=== PATIENT | female | born 1940 | race Caucasian/White ===

== ENCOUNTER 2017-02-05 20:42 | Inpatient (IN) | payer OTHER ==
[~2017-02-05] VITALS: Ht 165.1 cm; Wt 113.4 kg
--- NOTE | 2017-02-05 20:50 | NUR ---
PT BIBA FROM HOME WITH THE CAREGIVER BEDSIDE (PT'S DAUGHTER) FOR COMPLAINT OF WORSENING OF DIABETIC BL FOOT ULCERS. DAUGHTER STS PT HAS HAD CHRONIC ULCERS TO FEET THAT "DEVELOPED INTO ONE LARGE ONE." PT HAS HX OF DEMENTIA; ARRIVED TO ED AND TRANSFERRED TO ED [facility] WITH ASSISTANCE. PT HAS BEEN BEDRIDDEN FOR PAST 2 MONTHS SINCE SURGERY ON HEEL FOR AN UNHEALING ULCER. PT IS AWAKE AND ALERT; ORIENTED X 4 AT THIS TIME; ACTING HERSELF PER DAUGHTER. NORMAL RESP EFFORTS NOTED.
--- NOTE | 2017-02-05 21:00 | NUR ---
DR MEEK AT BEDSIDE
[2017-02-05 22:09] LABS: BASOPHIL % 0.6 % (0-2); PLATELET COUNT 279 x10^3mcL (130-400); RED CELL DISTRIBUTION WIDTH 14.2 % (11.5-14.5)
--- NOTE | 2017-02-05 22:15 | NUR ---
PT'S HEELS ELEVATED WITH SEVERAL PILLOWS TO PREVENT FURTHER PRESSURE ON SKIN PT REMAINS ON FULL MONITORS WITH NO SIGNS OF DISTRESS
[2017-02-05 22:48] LABS: CALCIUM 8.9 mg/dL (8.5-10.1); CARBON DIOXIDE 26.7 mmol/L (21-32); CHLORIDE SERUM 99 mmol/L (98-107); CREATININE SERUM 1.1 mg/dL (0.6-1.0); GLUCOSE SERUM 418 mg/dL (74-106); POTASSIUM SERUM 3.5 mmol/L (3.5-5.1); SODIUM SERUM 134 mmol/L (136-145)
[2017-02-05 22:59] LABS: ALKALINE PHOSPHATASE 54 U/L (46-116); ALT/SGPT 17 U/L (14-59); AST/SGOT 14 U/L (15-37); BILIRUBIN TOTAL 0.37 mg/dL (0.20-1.00); TOTAL PROTEIN, SERUM 7.4 g/dL (6.4-8.2)
--- NOTE | 2017-02-05 23:00 | NUR ---
PT REMAINS WITH NO CHANGES IN MENTAL STATUS; ON FULL MONITORS WITH NSR SHOWING.
[2017-02-05 23:01] LABS: ALBUMIN 2.6 g/dL (3.4-5.0)
[2017-02-05 23:04] LABS: CK-MB 0.7 ng/mL (0-3.6)
[2017-02-06] VITALS (7 sets, daily range): BP systolic 113–126; BP diastolic 45–90; Ht 165.1 cm; Wt 113.4 kg
[2017-02-06] MEDS ORDERED: LEVOTHYROXIN0.025 M2 (00:29)
[2017-02-06] MEDS ORDERED: INSR (00:30)
[2017-02-06] MEDS ORDERED: LANTUS SOLOS100 U/M1 SQ (00:30)
[2017-02-06] MEDS ORDERED: ASPIR 8181 MG PO (00:31)
[2017-02-06] MEDS ORDERED: SIMVASTATIN10 M1 PO (00:32)
[2017-02-06] MEDS ORDERED: ARICEPT5 MG PO (00:32)
[2017-02-06] MEDS ORDERED: LISINOPRIL2.5 MG (00:32)
--- NOTE | 2017-02-06 01:00 | NUR ---
RECEIVED PT FROM ED VIA [facility]. CAME IN DUE TO LEFT FOOT WOUND, PT NOT SURE WHEN IT STARTED. AAOX2 (PERSON AND PLACE), ABLE TO FOLLOW COMMANDS. NO SOB NOTED. DENIES CHEST PAIN/PRESSURE, SB-SR ON THE MONITOR. DENIES ABDOMINAL DISCOMFRORT. W/ LEFT FOOT OPEN WOUND, RESPITE PROVIDER. W/ DRY YELLOW CLOSED WOUND ON THE RIGHT PLANTAR ASPECT OF THE FOOT, RESPITE PROVIDER. W/ EXCORIATION ON THE PERINEAL AREA, ABODMINAL FOLDS AND BUTTOCKS. SIDE RAILS UPX2. CALL LIGHT ON REACH. PRIMARY NURSE CODY AT BEDSIDE FOR CONTINUITY OF CARE
--- NOTE | 2017-02-06 01:01 | NUR ---
PHOTOS TAKEN OF PT'S BUTTOCKS, ABDOMINAL FOLDS AND GROIN AREA FOR REDNESS AND EXCORIATIONS.
[2017-02-06 01:16] LABS: CHOLESTEROL/HDL RATIO 3.7
[2017-02-06 01:26] LABS: T3 TOTAL 0.3 ng/mL
--- NOTE | 2017-02-06 01:30 | NUR ---
IS MADE AWARE OF PT'S 2ND LACTIC ACID AT 2.3
[2017-02-06 01:47] LABS: FREE T4 0.51 ng/dL (0.76-1.46)
[2017-02-06 01:58] LABS: T4(THYROXINE) 3.5 ug/dL (4.7-13.3)
[2017-02-06 06:26] LABS: BASOPHIL % 0.7 % (0-2); PLATELET COUNT 319 x10^3mcL (130-400)
--- NOTE | 2017-02-06 06:28 | NUR ---
PT IS RESTING IN BED, AWAKE/ALERT AND VERBALLY RESPONSIVE. PT DID ASK FOR FOOD BUT EXPLAINED THAT THE DOCTOR HAS ORDERED NPO AT THIS TIME. RESP IS EVEN AND NOT LABORED ON ROOM AIR. NO DIFFICULTY BREATHING NOTED. IVF IS INFUSING WELL TO THE LFA WITH NS AT 120 ML/HR. BLOOD SUGAR CHECK WAS 235 AND REGULAR INSULIN 6 UNITS GIVEN PER RISS. BLE FEET ARE ELEVATED ORDERED. PT IS ABLE TO MAKE NEEDS KNOWN AND CALL LIGHT IS WITHIN REACH. NO DISTRESS NOTED.
[2017-02-06 06:42] LABS: CALCIUM 8.6 mg/dL (8.5-10.1); CARBON DIOXIDE 28.3 mmol/L (21-32); CHLORIDE SERUM 102 mmol/L (98-107); CREATININE SERUM 1.1 mg/dL (0.6-1.0); GLUCOSE SERUM 233 mg/dL (74-106); MAGNESIUM 1.4 mg/dL (1.8-2.4); PHOSPHOROUS 2.6 mg/dL (2.5-4.9); POTASSIUM SERUM 3.3 mmol/L (3.5-5.1); SODIUM SERUM 138 mmol/L (136-145)
[2017-02-06 06:48] LABS: RED CELL DISTRIBUTION WIDTH 14.9 % (11.5-14.5)
--- NOTE | 2017-02-06 07:45 | NUR ---
RECEIVED PT IN BED.ASSESSED AND DOCUMENTED.STATING PAIN IN THE WHEN ONLY WHEN SHE MOVE. OFFERED PAIN MEDICINE BUT STATED NO NEED OF PAIN MEDICINE NOW. SAFTEY PRECAUTIONS ON.WILL MONITOR.
--- NOTE | 2017-02-06 09:00 | NUR ---
INFORMED K=3.3.NO NEW ORDER RECEIVED.
--- NOTE | 2017-02-06 10:00 | NUR ---
PT SAID SHE WILL CALL WHEN SHE HAS TO VOID AND SHE WILL ASK FOR BEDPAN BUT SHE DOESNOT WANT ANY CATHETER. REMINDING PT NEED URINE SPECIMEN FOR UA.
--- NOTE | 2017-02-06 11:00 | NUR ---
INFORMED AGAIN K=3.3 AND STILL NO ORDER RECEIVED ,HE SAID HE WILL PUT ORDERS.
--- NOTE | 2017-02-06 13:47 | NUR ---
Limited Echo Done
--- NOTE | 2017-02-06 14:20 | NUR ---
INFORMED ABOUT US VENOUS SHOWS DVT IN LEFT FEMORAL VEIN. HE SAID HE WILL CHECK AND PUT ORDERS.
--- NOTE | 2017-02-06 17:00 | NUR ---
(PODIATRY) CAME AND CHECKED PT FOOT ULCER AND SAID LEAVE THE WOUND OPEN TO AIR AND CLEAN WITH SALINE.NO NEED DRESSING.
--- NOTE | 2017-02-06 19:00 | NUR ---
LATE ENTRY:PAGE GATED FOR TO INFORM BLOOD CULTURE RESULT GRAM POSITIVE. AWARE ABOUT WANT TO DO DUPLEX ARTIRIAL FOR BLE AND HE SAID US VENOUS BLE IS SAME AND ORDERED AND DONE.
--- NOTE | 2017-02-06 19:00 | NUR ---
PT RESTING IN BECD COMFORTABLY. DENIES ANY PAIN. REMINDED AGAIN FOR DVT POSITIVE FOR LT FEMORAL ELI BY PAGE GATE. GAVE REPORT TO NEXT SHIFT NURSE.
--- NOTE | 2017-02-06 19:30 | NUR ---
RECEIVED REPORT FROM DAY SHIFT RN. PT RESTING IN SEMI PRINGLE'S POSITION. AIR MATTRESS IN PLACE. NO C/O PAIN AT THIS TIME. NO DISTRESS NOTED. IV ON LFA, NS INFUSING. BED IN LOWEST POSITION. SIDE RAILS UP X2. DEMONSTRATED HOW TO CALL IF ASSISTANCE IS NEEDED. CALL LIGHT WITHIN REACH.
--- NOTE | 2017-02-06 20:36 | NUR ---
HEPARIN PROTOCOL 1300 UNITS/HR. NEXT PTT ORDER AT 0245.
--- NOTE | 2017-02-06 20:36 | NUR ---
HEPARIN PROTOCOL 13,000 UNITS/HR. NEXT PTT ORDER AT 0245.
[2017-02-07 03:30] LABS: CALCIUM 8.4 mg/dL (8.5-10.1); CARBON DIOXIDE 26.9 mmol/L (21-32); CHLORIDE SERUM 103 mmol/L (98-107); CREATININE SERUM 1.1 mg/dL (0.6-1.0); GLUCOSE SERUM 181 mg/dL (74-106); MAGNESIUM 2.9 mg/dL (1.8-2.4); POTASSIUM SERUM 3.5 mmol/L (3.5-5.1); SODIUM SERUM 134 mmol/L (136-145)
[2017-02-07 03:56] LABS: BASOPHIL % 0.4 % (0-2); PLATELET COUNT 322 x10^3mcL (130-400)
[2017-02-07 04:03] LABS: RED CELL DISTRIBUTION WIDTH 14.7 % (11.5-14.5)
--- NOTE | 2017-02-07 04:15 | NUR ---
PTT 73.3. HEPARIN 1100 UNITS/HR. NEXT PTT ORDER AT 0815.
[2017-02-07 06:10] VITALS: BP 114/75
--- NOTE | 2017-02-07 06:50 | NUR ---
PT SLEPT AT LONG INTERVALS. NO C/O PAIN. NO DISTRESS NOTED. SAFETY PRECAUTIONS MAINTAINED. ALL NEEDS ATTENDED TO. CALL LIGHT WITHIN REACH. WILL ENDORSE CONTINUITY OF CARE TO ONCOMING RN.
--- NOTE | 2017-02-07 07:45 | NUR ---
RECEIVED PT IN BED.ASSESSED AND DOCUMENTED. DENIES PAIN THIS TIME. SAFTEY PRECAUTIONS ON. WILL MONITOR.
--- NOTE | 2017-02-07 09:00 | NUR ---
INFORMED ABOUT PT MRSA NARES POSITIVE. HE SAID HE WILL PUT ORDERS.
--- NOTE | 2017-02-07 09:43 | NUR ---
0845: WOUND CARE NOTES: LEFT MESSAGE TO PATIENT'S DAUGHTER CELLPHONE AT [phone]. AWAITING FOR CALL BACK.
[2017-02-07 10:50] VITALS: BP 111/42
--- NOTE | 2017-02-07 11:23 | NUR ---
0900: WOUND CARE EVALUATION NOTES: REASON FOR EVALUATION: BILATERAL FEET ULCERS COMPLETE SKIN ASSESSMENT DONE ON THIS 76 Y/O FEMALE PATIENT FROM [place] [facility] WITH INITIAL DIAGNOSIS OF LEFT FOOT INFECTED DIABETIC ULCER. PAST MEDICAL HISTORY INCLUDE DM, DEMENTIA AND MULTIPLE EXCISIONAL DEBRIDEMENT OF DM ULCERS. ALL ABOVE INFORMATION WAS OBTAINED FROM THE ADMISSION H&P. LABS ARE WBC 8.6, H/H 12.8/39, GLUCOSE 181, ALBUMIN 2.6, PT/INR 10.3/1.0 AND PTT 25.6. CURRENT MEDS INCLUDE LEVOFLOXACIN, CLINDAMYCIN, HEPARIN, TRIAMCINOLONE, INSULIN, ASPIRIN AND NORCO. PATIENT IS AWAKE, ORIENTED X2 BUT ABLE TO FOLLOW SIMPLE COMMANDS. SKIN WARM TO TOUCH WNL, TOENAILS ARE YELLOW AND THICKENED, +2 EDEMA, NO HAIR GROWTH AND UNABLE TO PALPATE BILATERAL PEDAL PULSES. URINE AND BOWEL INCONTINENT. ABLE TO TURN SELF WITH ASSISTANCE. INITIAL PLAN OF CARE AND PRESSURE PREVENTIVE MEASURES DISCUSSED, UNABLE TO VERBALIZE FULL UNDERSTADNING. WILL REINFORCE TEACHING. NO FAMILY MEMBER PRESENT AT BEDSIDE AT THIS TIME, WILL FOLLOW UP. INTEGUMENTARY: LEFT PLANTAR FOOT - MULTIPLE MIXED VASCULAR ULCERS - 100% BLACK LEFT MEDIAL DISTAL HALLUX - 100% DUARTE ESCHAR RIGHT MEDIAL PLANTAR FOOT - 100% YELLOW ABDOMINAL FOLD - INTERTRIGINOUS DERMATITIS BILATERAL BREAST FOLDS - INTERTRIGINOUS DERMATITIS SACRALCOCCYX, PERIAREA, BILATERAL GROIN AND BILATERAL MEDIAL THIGHS - INCONTINENCE ASSOCIATED DERMATITIS RECOMMENDATIONS: -PAINT BILATERAL PLANTAR FOOT AND LEFT MEDIAL DISTAL HALLUX WITH BETADINE BID AND LEAVE OPEN TO AIR -CLEANSE ABDOMINAL FOLDS AND BREAST FOLDS WITH MILD SOAP AND WATER, PAT DRY, APPLY INTERDRY CLOTH Q 7 DAYS AND PRN WITH SOILING/DISPLACEMENT -CLEANSE SACRALCOCCYX, PERIAREA, BILATERAL GROIN AND BILATERAL MEDIAL THIGHS WITH MILD SOAP AND WATER, PAT DRY, APPLY Z GUARD BID AND PRN WITH SOILING. LEAVE OPEN TO AIR -TURN AND REPOSITION PATIENT Q2H -ASSESS AND MONITOR SKIN CONDITION DURING POSITION CHANGE, PLEASE PAY PARTICULAR ATTENTION TO SACRALCOCCYX, ELBOWS AND HEELS -OFFLOAD BILATERAL HEELS BY PLACING PILLOWS UNDER CALVES AT ALL TIMES, UNLESS OTHERWISE CONTRAINDICATED -PRESSURE REDISTRIBUTION SURFACE THERAPY -KEEP SKIN CLEAN AND DRY AT ALL TIMES. RECOMMENDATIONS DISCUSSED WITH PRIMARY RN AND RESIDENT PHYSICIAN, DR. PITTMAN. WILL FOLLOW UP PATIENT Q 7 DAYS AND PRN. PLEASE CONTACT [facility] FOR ANY CONCERNS, QUESTIONS AND CHANGES IN SKIN CONDITION.
--- NOTE | 2017-02-07 12:00 | NUR ---
INFORMED ABOUT COULD NOT COLLECT UA BECAUSE SHE IS INCONTINENT AND DISCUSSED PT WITH MAY HAVE TO STRAIGHT CATH BUT PT SAID SHE DOESNOT WANT ANY URINAY CATHETER INSERTION. TRY TO CATCH WITH BEDPAN BUT SHE IS NOT URINATING IN THE BEDPAN THIS TIME. WILL TRY AGAIN.
[2017-02-07 13:00] VITALS: BP 126/60
--- NOTE | 2017-02-07 14:15 | NUR ---
OR STAFF CAME AND TOOK PT TO OR VIA BED FOR BILATERAL FOOT ULCER DEBRIDEMENT. CALLED DAUGHTER AND GOT CONSENT, VERIFIED WITH 2 RN. PT IS STABLE. VITAL SIGNS STABLE.INFORMED PT HR 55,HE SAID FINE AND GIVE DILAUDID IV 1MG ORDERED AND GAVE LIDOCIANE TO FOR PROCEDURE.CHECKLIST FINISHED.
--- NOTE | 2017-02-07 16:00 | NUR ---
RECEIVED PT FROM OR AFTER DEBRIDEMENT OF BILATERAL FOOT ULCERS. VITAL SIGNS STABLE. PT IS SLEEPING. DENIES ANY PAIN. DRESSING TO BILATERAL FOOT WITH KERLIX GAUZE IS CDI. SAID RESTARTING HEPARIN AT 1999. WILL CONTINUE MONITOR.
--- NOTE | 2017-02-07 17:12 | NUR ---
P.T. NOTES/INITIAL EVAL [id number] Pt WAS ADMITTED DUE TO (L)FOOT INFECTED DIAB ULCER; Pt LIVES IN 1-SAUL HOUSE W/ DAUGHTER; Pt UNABLE TO RECALL WHEN SHE RECENTLY AMBULATED OR IF SHE HAS DMEs, UNABLE TO RECALL PREVIOUS OCCUPATION; PER CASE MGMT: Pt HAS HOSP BED, FWW, SPC, MECH LIFT, OHT, BSC, W/C (UNABLE TO SIT ON). S:Pt WAS SEEN AWAKE & ALERT IN BED, SPEAKS NORWEGI[place], ORIENTED TO SELF & PLACE, ABLE TO FOLLOW COMMANDS, AGREEABLE W/ P.T. W/ MOTIVATION; DEMO LE PAIN (P.S.8/10)(LUNA MADISON PAIN SCALE); NO C/O DIZZINESS AT THIS TIME; WOUND RN & ECLECTIC DOCTOR IN ROOM; MINIMAL BLEEDING (L)FOOT WOUND, RN ADDRESSED; Pt TENDS TO BE ANXIOUS, APPREHENSIVE; CONTACT ISOL PREC OBSERVED; WAS SEEN EARLIER, BUT Pt REQUESTED P.T. STAFF TO COME BACK DUE TO Pt's BROTHER VISITING (ALSO A PATIENT). O: BED MOBILITY: TOTAL ASSIST+2 PERSONS IN SUPINE TO SIT TRANSFERS: TOTAL ASSIST+2 PERSONS IN SIT TO STAND W/ FWW, (L)LE NWB, REQ ASSIST TO MAINTAIN WB PREC, POORLY KIMBERLY GAIT: UNABLE Pt ASSISTED TO BED SAFELY; HOB, LE ELEVATED; CALL BERG, PHONE, TABLE IN REACH; APPRECIATIVE; LEFT TO CARE OF NURSE STAFF; ON ROOM AIR; AIR MATTRESS ON, BED ALARM ON. A:Pt DEMO FAIR RESPONSE TO P.T. SESSION; FALL RISK; Pt EDUC ON SAFE TASK SEQUENCING, HEP, BREATHING TECH, USE OF CALL LIGHT FOR NURSE ASSIST, NEEDS REINFORCEMENT, POOR FOLLOW THRU; OBESE, MRSA. P:CONT PT ONCE DAILY 5X/WK X 1 WK; POC & DX DISCUSSED W/ UMBRELLA FRAME MAKER. EVAL23,2PA GCODES:[id number] [facility] REACH SCORE:15 inches [phone] Pt WAS GIVEN THERA EXER UE/LE INCORPORATED W/ BED ACT; CONT PT EX8
--- NOTE | 2017-02-07 17:25 | NUR ---
PT VOMITED X1 AND GAVE ZOFRAN IV ORDERED AND WILL REASSESS.
[2017-02-07 17:57] VITALS: BP 119/59
--- NOTE | 2017-02-07 19:00 | NUR ---
PT RESTING IN BED COMFORTABLY. DENIES ANY PAIN. NO NAUSEA NOTED. GAVE REPORT TO NEXT SHIFT NURSE.
--- NOTE | 2017-02-07 19:40 | NUR ---
RECEIVED RERPORT FROM DAY SHIFT RN. PT RESTING IN SEMI PRINGLE'S POSITION. IV ON RFA, SALINE LOCK. IV ON LEFT WRIST, NS INFUSING. NO C/O PAIN AT THIS TIME. NO DISTRESS NOTED. AIR MATTRESS IN PLACE. BLE ELEVATED. DRESSING CDI. BED IN LOWEST POSITION. SIDE RAILS UP X2. DEMONSTRATED HOW TO CALL IF ASSISTANCE IS NEEDED. CALL LIGHT WITHIN REACH.
--- NOTE | 2017-02-07 21:10 | NUR ---
HEPARIN DRIP RESTARTED PER ORDER. 1300 UNITS/HR. NEXT PTT ORDER ON 02/08/17 AT 0310.
[2017-02-07 22:02] VITALS: BP 97/75
[2017-02-08 00:59] LABS: UA SPECIFIC GRAVITY >=1.030 (1.005-1.035); microscopic required? YES; urine erythrocyte 2+ (NEGATIVE)
[2017-02-08 04:20] LABS: BASOPHIL % 0.6 % (0-2); PLATELET COUNT 319 x10^3mcL (130-400)
[2017-02-08 04:21] LABS: RED CELL DISTRIBUTION WIDTH 15.1 % (11.5-14.5)
[2017-02-08 04:32] LABS: CALCIUM 8.8 mg/dL (8.5-10.1); CARBON DIOXIDE 28.5 mmol/L (21-32); CHLORIDE SERUM 106 mmol/L (98-107); CREATININE SERUM 1.1 mg/dL (0.6-1.0); GLUCOSE SERUM 93 mg/dL (74-106); MAGNESIUM 1.8 mg/dL (1.8-2.4); PHOSPHOROUS 4.2 mg/dL (2.5-4.9); POTASSIUM SERUM 4.1 mmol/L (3.5-5.1); SODIUM SERUM 140 mmol/L (136-145)
--- NOTE | 2017-02-08 04:45 | NUR ---
PTT RESULT 102. HOLD HEPARIN FOR 1 HR, DECREASE BY 300 UNITS/HR. NEXT PTT ORDER ON 02/08/17 AT 0845.
[2017-02-08 07:00] VITALS: BP 102/43
--- NOTE | 2017-02-08 07:00 | NUR ---
PT SLEPT AT LONG INTERVALS. C/O NAUSEA X1, MEDICATED WITH ZOFRAN. SAFETY MEASURES MAINTAINED. CALL LIGHT WITHIN REACH. WILL ENDORSE CONTINUITY OF CARE TO ONCOMING RN.
--- NOTE | 2017-02-08 08:00 | NUR ---
ALERT AND ORIENTED. BREATHING FREELY ON 02 2L NC. CONTACT ISOLATION FOR MRSA TO NARES. ON AIR MATTRESS. TURNED AND REPOSITIONED Q 2 HOURS. DENIES ANY PAIN. TELE # 34 HR 50'S. ASYMPTOMATIC. NS INFUSING 120 CC HOUR. FEET WRAPPED WITH KERLEX WRAP. SM AMT SEROSANGUINOUS FLUID SHADDOWING THROUGH. CALL LIGHT WITHIN REACH.
[2017-02-08 09:45] VITALS: BP 115/60
--- NOTE | 2017-02-08 10:26 | NUR ---
REPORTED FROM LAB PTT 60.1. NEW ORDER TO DC HEPARIN DRIP. TO START XARELTO OMAR.
--- NOTE | 2017-02-08 11:20 | NUR ---
HEPARIN DC'D. STARTED ON XARELTO PO.
[2017-02-08 13:26] VITALS: BP 103/62
--- NOTE | 2017-02-08 14:24 | NUR ---
PT NOTES TIME [phone] S: CLEARED BY RN FOR P.T. TX. PATIENT IS AWAKE & ALERT IN A SEMI PRINGLE POSITION IN BED. AGREEABLE TO P.T. TX. C/O LOW BACK & BILAT LE 04/13. RN IS AWARE. O: VITALS AT REST BP 121/48, HR 48 BPM, SPO2 ON 2LPM 100% BED MOBILITY: LOGROLLING MAX ASSIST OF 2. SUPINE<>SIT W/ TOTAL ASSIST OF 2. SCOOTING TO EOB W/ MAX ASSIST OF 2. SCOOTING TO HOB IN SUPINE TOTAL ASSIST OF 2. WHILE SEATED AT EOB, PATIENT REQUIRES MIN ASSIST TO MAINTAIN SITTING BALANCE DUE TO PATIENT EASILY HAVE A LOB. VC/TC GIVEN TO USE SIDERAIL DURING LOGROLLING. PATIENT WILL RETROLEAN IN SITTING & REQUIRES CUES GIVEN TO CORRECT COG FORWARD IN SITTING. PATIENT ABLE TO KIMBERLY. SITTING AT EOB FOR 25 MINS. EDUCATED PATIENT ON THE RISK/COMPLICATIONS OF IMMOBILIZATION W/ G UNDERSTANDING. VITALS IN SITTING BP 127/55, HR 50-57 BPM, SPO2 ON 2LPM 100% TRANSFER: REFUSED THER EX AAROM/AROM KNEE FLEX/EXT, HIP FLEXION, HIP ABD/ADD, SLR, SHOULDER FLEXION, ELBOW FLEX/EXT, SHOULDER HORIZ. ABD/ADD, SCAPULAR RETRA/PROTRAC X 15 REPS W/ REST BREAKS IN BETWEEN. PATIENT IS SAFELY & COMFORTABLY IN A SEMI PRINGLE POSITION IN BED W/ CALL BUTTON & TABLE IN REACH. AIR MATTRESS ON. BED ALARM ON. O2 VIA NC. VITALS AFTER TX BP 134/45, HR 47 BPM. RN NOTIFIED P: DISCUSSED W/ PRIMARY PHYSICAL THERAPIST TA28',TE10',2PA(2), PVE(PERINEAL CARE)
--- NOTE | 2017-02-08 14:27 | NUR ---
PT SLEEPING. APPEARS TO BE COMFORTABLE. CONTACT ISOLATIN FOR MRSA NARES.
--- NOTE | 2017-02-08 16:53 | NUR ---
REMOVED DRESSING TO LEFT FOOT. CLEANSED LARGE PLANTAR WOUNDS WITH NS. SLOUGH NOTED TO WOUND CLOSER TO TOES. SMALL AMT BLEEDING NOTED TO SEVERAL SITES. SOAKED GAUZE WITH HYDROGEL AND COVERED WOUNDS. PLACED ABD PAD ON PLANTAR SURFACE AND WRAPPED WITH KERLEX. REMOVED DRESSING TO RIGHT FOOT. SMALL WOUND APPROX 1 1/2 CM X 1 CM ON PLANTAR SURFACE. NO BLEEDING OR DRAINAAGE NOTED. CLEANSED SITE WITH NS. SOAKED CLEAN GAUZE WITH HYDROGEL COVERED PLANTR WOUND AND REWRAPPED WITH CLEAN KERLEX. CHANGED LINENS AND GOWN, REPOSITIION PT WITH ASSIST FRON 1 TO 1. RESOURCE NURSE.
--- NOTE | 2017-02-08 16:56 | NUR ---
Initial Nutrition Assessment Dx: Left DM Foot ulcer with cellulitis PMHx: DM, Dementia PSHx: Multiple excisional debridements of DM ulcers Labs: BG 93, Cr 1.1H, Alb 2.6, A1C 11.6H Meds: NS, colace, lactinex, synthroid, zofran, levemir, aricept, humulin R, D50 Current Diet Order: CCHO 60gm w/ Boost Glucose Control BID (02/06) PO Intakes: 100% B, 85% L (02/06); 80% B, 100% D (02/07); 100% B, 100% L (02/08) Ht: 165.1cm,65". Wt: 249lbs,113.39 kg. BMI: 41.6 kg/m2 (Obese Class III) IBW: 125lb, 56.8 kg. %IBW: 199%. UBW: pt unsure Age: 76 Y/O F Food Allergies: NKFA Skin: DM foot ulcer. Micah:14 Edema: None noted GI:C/O nausea . Last BM:1 formed (02/08) Pt admitted w/Left DM Foot ulcer with cellulitis. As per doctor's progress note 02/08-Persistent asymptomatic bradycardia likely 2/2 hypothyroidism, vitals otherwise stable. PT eval pending. X-ray Left foot- IMPRESSION: There are findings likely reflecting old fracture versus partial osteotomy of the 1st distal phalanx. No fractures are appreciated. There findings questionable for soft tissue ulceration noted along the lateral aspect of the foot adjacent to the distal aspect of the 5th metatarsal bone without soft tissue gas. Degenerative changes are noted. Podiatry consulted, Dr. Tavera Following, Continue IV ABX, continue wound care, consider vascular consult if moderate to severe occlusion or general surgery for possible amputation if occlusion is mild to moderate. Heparin on Held for Excisional debridement today. Patient s/p Exisional debridement POD#0. Patient refusing streight cath for UA. Pt seen at bedside w/ no family present, pt was on contact isolation, pt reports consuming 100% of lunch today, states "I like to eat", denies GI issues, unsure of wt history, the RD briefly reviewed w/ pt on DM diet and making food preferences known, educational handout given, the pt was mildy receptive, the RD encouraged pt to share info w/ family. Spoke to RN, reports the pt is doing well, has good appetite, denies GI issues. Problem with: N: None. V: None. D: none. C: None. Problem with: Chewing: None. Swallowing: None. Current Appetite: Good- "likes to eat" as per pt Recent Weight Change: unable to assess. % Weight Change: unable to assess Vitamin/Supplement Use: unable to obtain Diet at Home: unable to obtain Physical Activity: unable to obtain Education: N/A d/t pt demented Estimated Nutritional Needs Based on IBW 125 lb, 56.8kg Energy: 1920-4757 kcal/day (30-35 kcal/kg for DM Ulcer) Protein: 57-68 g/day (1-1.2 g/kg for DM Ulcer) Fluid: 6278-0047 ml/day (30-35 ml/kg for DM Ulcer) or per MD Nutrition Diagnosis 1. Increased protein/energy needs related to impaired skin integrity as evidenced by pt w/ DM foot ulcer Intervention 1. CCHO 60mg and Cardiac diet. 2. Theragran daily and Vitamin C 500gm BID for wound healing Monitor/Evaluate Goal: PO intakes to meet >/=75% of estimated needs w/ tolerance Monitor: PO intakes/tolerance, labs, skin integrity, GI function, wt F/U in 3-5 days as MODERATE risk (02/11-02/13)
[2017-02-08 16:57] VITALS: BP 94/41
--- NOTE | 2017-02-08 17:01 | NUR ---
1. CCHO 60mg and Cardiac diet. 2. Theragran daily and Vitamin C 500gm BID for wound healing
--- NOTE | 2017-02-08 18:23 | NUR ---
PT TURNED QUITE FREQUENTLY PER REQUEST. ABLE TO ASSIST WITH TURNING. ALERT AND ORIENTED. FORGETFUL. INCONTINENT OF URINE. OCC ASKS FOR BEDPAN. NS INFUISNG 120 CC HOUR. HEPARIN DC'D. STARTD ON XARELTO. CONTINUES ON LEVAQUIN AND CLEOCIN. CALL LIGHT WITHIN REACH. CONTACT ISOLATION FOR MRSA TO NARES.
--- NOTE | 2017-02-08 19:35 | NUR ---
RECEIVED Pt AAOX2 FORGETFUL. DENIES ANY CHEST PAIN. LUNG SOUNDS ARE DIMINISHED BUT CLEAR BILATERALLY. PULSE OX 96% ON 2L/NC. ACTIVE BOWEL SOUNDS X4 QUADS. DENIES ANY N/V/D. REDNESS NOTED TO BUTTOCKS, UNDER BREASTS, ABD FOLDS, GROIN AREAS, AND UPPER BACK, EDGE STAINER. VOIDS FREELY. IV SITES TO RFA/LT WRIST ARE PATENT. AIR MATTRESS IN PLACE AND REPOSITIONED USING WEDGES. RADIAL AND PEDAL PULSES PRESENT WITH GENERALIZED EDEMA NOTED. DRESSING TO BLE CDI. REFUSES TO ELEVATE EXTREMITIES DUE TO DISCOMFORT. RE-ORIENTED TO CALL LIGHT AND POC. WILL CONTINUE TO MONITOR.
[2017-02-08 20:45] VITALS: BP 124/40
--- NOTE | 2017-02-09 00:10 | NUR ---
Pt CLEANED, REPOSITIONED. SUGGESTED TO DR. GONZALEZ A FIGUEREDO CATH TO PREVENT FURTHER SKIN BREAK DOWN. MADE AWARE PLAN TO D/C Pt TOMORROW. WILL CONTINUE TO REPOSITION Q2HRS.
--- NOTE | 2017-02-09 01:08 | NUR ---
Pt RESTING QUIETLY. WILL CONTINUE TO MONITOR.
--- NOTE | 2017-02-09 05:26 | NUR ---
NO SIGNIFICANT CHANGES NOTED OVER NIGHT. Pt RESTED WELL WITH AMBIEN AND NORCO. REPOSITIONED PER PROTOCOL. IV SITES REMAIN PATENT. SAFETY AND COMFORT MEASURES REMAIN IN PLACE. WILL CONTINUE TO MONITOR.
[2017-02-09 06:09] LABS: BASOPHIL % 0.5 % (0-2); PLATELET COUNT 293 x10^3mcL (130-400)
[2017-02-09 06:20] VITALS: BP 115/47
[2017-02-09 06:39] LABS: RED CELL DISTRIBUTION WIDTH 14.8 % (11.5-14.5)
[2017-02-09 06:42] LABS: CALCIUM 8.3 mg/dL (8.5-10.1); CARBON DIOXIDE 26.3 mmol/L (21-32); CHLORIDE SERUM 107 mmol/L (98-107); CREATININE SERUM 1.1 mg/dL (0.6-1.0); GLUCOSE SERUM 90 mg/dL (74-106); SODIUM SERUM 140 mmol/L (136-145)
--- NOTE | 2017-02-09 06:55 | NUR ---
I HAVE REVIEWED THE DATA COLLECTION BY JINGLE WRITER (NAME):KODAK LOUIS JINGLE WRITER ENTERED ON (DATE/TIME):02/08/17 @ 1999 I CONCUR WITH THE DATA AND ANY EXCEPTIONS OR COMMENTS ARE LISTED BELOW:
--- NOTE | 2017-02-09 08:00 | NUR ---
ALERT AND ORIENTED. FORGETFUL. BREATHING FREELY ON 2L NC. NO RESP DISTRESS NOTED. CONTACT ISOLATION FOR MRSA NARES. TELE # 34 SB HR UPPER 40'S-60'S. NS INFUSING 120 CC HOUR. INCONTINENT OF URINE. REQUIRES ASSIST W/ ADL'S AND TURNING. ON AIR MATTRESS. DRESSINGS TO FEET CDI. DENIES ANY PAIN. CALL LIGHT WITHIN REACH AND NEEDS FREQUENT REMINDERS.
[2017-02-09 10:07] VITALS: BP 139/58
[2017-02-09 12:58] VITALS: BP 132/56
--- NOTE | 2017-02-09 14:04 | NUR ---
RECEIVED REPORT FROM LAB LEFT FOOT CX MRSA (+).
--- NOTE | 2017-02-09 15:40 | NUR ---
DR. MATAMOROS IN TO SEE PT. PERFORMING WOUND CARE TO LEFT AND RIGHT FEET. RECEIVED REPORT FROM LAB RIGHT FOOT WOUND IS ALSO MRSA (+). DR. MATAMOROS INFORMED. PT IS ON ISOLATION PRECAUTIONS. NEW IV ABX ORDERED.
[2017-02-09 18:12] VITALS: BP 121/66
--- NOTE | 2017-02-09 18:39 | NUR ---
PT CONTINUES TO REQUIRE MAX ASSIST WITH MOST ADL'S AND TURNING. DRESSINGS TO LEFT AND RIGHT FEET CDI. STARTED ON FORTAZ AND BACTRIM TODAY. TURNED AND REPOSITIONED Q 2 HOURS AND PRN. KENALOG FOR EXCORIATED BUTTOCKS,RASH TO ABD AND BREAST FOLDS. DENIES NEED FOR PAIN MED. CONTACT ISOLATION FOR MRSA NARES AND BILAT FEET WOUNDS. VSS. TELE # 34 SB. CALL LIGHT WITHIN REACH.
--- NOTE | 2017-02-09 19:23 | NUR ---
RECEIVED PT FROM JA DANIEL.
[2017-02-09 20:43] VITALS: BP 132/59
--- NOTE | 2017-02-09 21:36 | NUR ---
SCHEDULED MEDICATIONS ADMINISTERED. NO SWALLOWING DIFFICULTY. TURNED PATIENT TO LEFT SIDE WITH PILLOW AND PILLOWS TO BLE FOR COMFORT AND TO PREVENT FURTHER SKIN BREAKDOWN. WILL CONTINUE TO MONITOR.
--- NOTE | 2017-02-09 22:00 | NUR ---
ASSISTED PATIENT TO BEDPAN AND RE-EDUCATED REGARDING USE OF CALL LIGHT DUE TO PATIENT FORGETFULLNESS. AFTER, RE-POSITIONED PATIENT FOR COMFORT AND OFF-FLOAT HEELS ON PILLOWS. WILL CONTINUE TO MONITOR.
[2017-02-10 05:38] VITALS: BP 114/55
[2017-02-10 06:34] LABS: BASOPHIL % 0.6 % (0-2); PLATELET COUNT 312 x10^3mcL (130-400)
[2017-02-10 06:38] LABS: RED CELL DISTRIBUTION WIDTH 14.9 % (11.5-14.5)
[2017-02-10 07:08] LABS: CALCIUM 8.7 mg/dL (8.5-10.1); CARBON DIOXIDE 26.2 mmol/L (21-32); CHLORIDE SERUM 105 mmol/L (98-107); GLUCOSE SERUM 100 mg/dL (74-106); MAGNESIUM 1.6 mg/dL (1.8-2.4); PHOSPHOROUS 3.7 mg/dL (2.5-4.9); POTASSIUM SERUM 4.7 mmol/L (3.5-5.1); SODIUM SERUM 139 mmol/L (136-145)
--- NOTE | 2017-02-10 08:18 | NUR ---
SITTING UP IN BED EATING BREAKFAST. BREATHING FREELY ON RA. LUNG SOUNDS CLEAR,DIMINISHED. NO RESP DISTRESS. USES 02 NC EXCEPT DURING MEALS. NO TELE. AIR MATTRESS. DRESSINGS TO FEET BILAT CDI. DRESSING CHANGES DAILY AND PRN. DENIES ANY PAIN. ABLE TO ASSIST WITH TURNING AND REPOSITIONING. ALERT AND ORIENTED. FORGETFUL. NS INFUSING 20 CC HOUR. SL TO RT FA. CALL LIGHT WITHIN REACH.
--- NOTE | 2017-02-10 08:30 | NUR ---
ENRIQUE'D 02 SAT AFTER BREAKFAST 94 % ON RA. WILL MONITOR. DENIES ANY PAIN. FREQUENT TURNING AND REPOSITIONING. CALL LIGHT WITHIN REACH.
[2017-02-10 10:26] VITALS: BP 123/53
--- NOTE | 2017-02-10 14:53 | NUR ---
FIGUEREDO INSERTED. PT HAS HEAVY WETTING. SKIN IS EXCORIATED OVER BUTTOCKS,BHARATI AREA,INNER THIGHS. CHANGED ALL BED LINENS AND GOWN WITH MUCH ASSIST FROM VIBRATING SCREEN OPERATOR. COVERED EXCORIATIONS WITH KENALOG CREAM.
--- NOTE | 2017-02-10 15:56 | NUR ---
REMOVED EXSISTING DRESSING TO BOTH FEET. DR. MATAMOROS AT BEDSIDE TO CK AND EVAL FOOT WOUNDS. RIGHT FOOT WOUND IS IMPROVED FROM YESTERDAY. LEFT FOOT HAS BLEEDING IN SOME AREAS, SLOUGH AND BLACKENED AREAS. CLEANSED W BETADINE AND NS. COVERED W HYDROGEL SOAKED GAUZE COVERED W ABD PAD AND GAUZE WRAP. TOLERATED WELL.
[2017-02-10 17:41] VITALS: BP 121/56
--- NOTE | 2017-02-10 18:55 | NUR ---
PT RESTING MORE COMFORTABLY WITH FIGUEREDO. CONTINUES TO BE FORGETFUL. COOPERATIVE WITH CARE. CONTINUE ON BACTRIM PO AND FORTAZ IV. OINTMENT CHANGED FOR EXCORIATION TO BUTTOCKS,BHARATI AREA,INNER THIGHS, UNDER BREAST AND ABD FOLD. PT KEEPS ASKING ABOUT HER BROTHER. HE WAS DC'D TO HOME FROM YESTERDAY. PT WAS TOLD BUT KEEPS FORGETTING. PT WILL BE GOING TO A SNF FOR CONINUES IV ABX, WOUND CARE TO FEET AND P.T. PT IS IN AGREEMENT.
--- NOTE | 2017-02-10 19:30 | NUR ---
RECEIVED PATIENT BACK FROM AM FREDY. PATIENT QUIETLY RESTING IN BED. DENIES ANY SOB OR PAIN AT THIS TIME. DRESSING TO BLE CDI. WEAK PEDAL PULSES AND EDEMA NOTED. WILL CONTINUE TO MONITOR.
[2017-02-10 21:23] VITALS: BP 113/59
--- NOTE | 2017-02-11 00:20 | NUR ---
SAFETY ROUNDS MADE. NO S/SX OF DISTRESS NOTED. CALL LIGHT WITHIN REACH AND BED IN LOW POSITION AND PATIENT REPOSITIONED FOR COMFORT. FIGUEREDO CATHETER IN PLACE DRAINAGE SLIGHTLY CLOUD YELLOW URINE.
--- NOTE | 2017-02-11 05:00 | NUR ---
DRESSING CHANGED TO BLE AND PICTURES TAKEN AND PROVIDED IN PATIENT'S CHART. PATIENT TOLERATED WELL. NO DISTRESS NOTED. CONTINUED ON CONTACT PRECAUTIONS.
[2017-02-11 05:38] VITALS: BP 119/49
[2017-02-11 07:11] LABS: BASOPHIL % 0.9 % (0-2); PLATELET COUNT 353 x10^3mcL (130-400); RED CELL DISTRIBUTION WIDTH 14.5 % (11.5-14.5)
--- NOTE | 2017-02-11 07:25 | NUR ---
ENDORSED CARE TO AM MARIO PERERA. PATIENT CONTINUED ON FIGUEREDO. REMOVED 2700 ML FROM FOELY BY END OF SHIFT.
--- NOTE | 2017-02-11 07:35 | NUR ---
RECEIVED THE PATIENT AWAKE AND ORIENTED TO PERSON, PLACE WITH FORGETFULNESS AT TIMES. REORIENTED PATIENT TO TIME. PATIENT DENIED SHORTNESS OF BREATH, NAUSEA/VOMITING OR PAIN AT THIS TIME. BOTH FEET WITH DRESSING INTACT. IVF NS VIA H/L TO LEFT WRIST. ANOTHER H/L TO RFA. F/C TO GRAVITY DRAINING YELLOW URINE. CALL LIGHT WITHIN REACH. SIDE RAILS UP X3. BED AT LOWEST POSITION. PATIENT WAS ON AIR MATTRESS. 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
--- NOTE | 2017-02-11 07:47 | NUR ---
DR. LACY AND THE TEAM WERE MAKING ROUND TO SEE THE PATIENT. THE CARE PLAN WAS EXPLAINED TO THE PATIENT.
[2017-02-11 07:56] LABS: CALCIUM 8.9 mg/dL (8.5-10.1); CARBON DIOXIDE 28.3 mmol/L (21-32); CHLORIDE SERUM 105 mmol/L (98-107); GLUCOSE SERUM 94 mg/dL (74-106); MAGNESIUM 2.2 mg/dL (1.8-2.4); PHOSPHOROUS 3.7 mg/dL (2.5-4.9); POTASSIUM SERUM 4.5 mmol/L (3.5-5.1); SODIUM SERUM 138 mmol/L (136-145)
[2017-02-11 09:15] VITALS: BP 115/72
--- NOTE | 2017-02-11 11:34 | NUR ---
PT NOTES TIME [id number] S: CLEARED BY RN FOR P.T. TX. PATIENT IS AWAKE & ALERT IN A SEMI PRINGLE POSITION IN BED. AGREEABLE TO P.T. TX W/ VERBAL ENCOURAGEMENT. C/O DIZZINESS & BUTTOCK PAIN 03/13. O: VITALS AT REST BP 134/47, HR 54 BPM, SPO2 ON RA 96% BED MOBILITY: SUPINE<>SIT MAX ASSIST OF 2. SCOOTING TO EOB W/ MAX A OF 2. IN SITTING PATIENT INITIALLY RETROLEAN, BUT IS ABLE TO CORRECT BALANCE W/ VC/TC FOR FORWARD COG. WHILE SEATED AT EOB PATIENT DID SOME SKILLED FACILITATORY WT. SHIFTING ACTIVITIES TO IMPROVE TRUNK CONTROL. TRANSFER: ATTEMPTED SIT<>STAND W/ FWW TOTAL ASSIST OF 2 X 2. PATIENT UNABLE TO STAND. L LE NWB. PATIENT REQUIRES VERBAL ENCOURAGEMENT TO PARTICIPATE. VC GIVEN ON FORWARD LEAN & USE OF R LE TO STAND, BUT UNABLE. EDUCATED PATIENT ON THE RISK/COMPLICATIONS OF IMMOBILIZATION & REPOSITIONING EVERY 2HRS W/ F- UNDERSTANDING. PATIENT IS FORGETFUL AT TIMES. COOPERATIVE & APPRECIATIVE OF CARE. THER EX ANKLE DF/PF, KNEE FLEX/EXT, SHOULDER FLEXION, ELBOW FLEX/EXT, SCAPULAR RETRAC/PROTRAC KIMBERLY. PATIENT IS SAFELY & COMFORTABLY IN A SEMI PRINGLE POSITION IN BED W/ CALL BUTTON & TABLE IN REACH. BILAT LE ELEVATED ON A WEDGE W/ HEELS FLOATED. AIR MATTRESS ON. O2 VIA NC IN PLACE. VITALS AFTER TX BP 131/48, HR 52. RN NOTIFIED. P: DISCUSSED W/ PRIMARY PHYSICAL THERAPIST [id number]',[id number]',2PA(2)
--- NOTE | 2017-02-11 15:43 | NUR ---
CALLED [facility] AND GAVE REPORT TO ROSE MARY LAYTON. ALL QUESTIONS WERE ADDRESSED.
[2017-02-11] MEDS ORDERED: FORTAZ2 GM IV (15:58)
--- NOTE | 2017-02-11 16:00 | NUR ---
THE F/C WAS REMOVED ORDERED. THE F/C TIP INTACT. 400 ML OF URINE OUTPUT WAS NOTED IN THE F/C BAG.
[2017-02-11] MEDS ORDERED: BACDS PO (16:09)
[2017-02-11] MEDS ORDERED: XARELTO10 M1 PO (16:10)
[2017-02-11] MEDS ORDERED: XARELTO15 M1 PO ×2 (16:10→17:04)
[2017-02-11] MEDS ORDERED: BG MC (16:11)
[2017-02-11] MEDS ORDERED: DEXPF IV (16:11)
[2017-02-11] MEDS ORDERED: BACO TOP (16:12)
[2017-02-11] MEDS ORDERED: LAC PO (16:12)
[2017-02-11] MEDS ORDERED: VITC PO (16:13)
[2017-02-11] MEDS ORDERED: THERA TABS1 TAB PO (16:13)
[2017-02-11] MEDS ORDERED: MYCC TOP (16:13)
--- NOTE | 2017-02-11 16:30 | NUR ---
CALLED PATIENT'S DAUGHTER, LORE GOULD TO NOTIFY HER OF THE PATIENT'S TRANSF[place] [facility] [place] AND OBTAINED THE TRANSFER ACKNOWLEDGEMENT WITH THE WITNESS OF MARIO RAMEY.
--- NOTE | 2017-02-11 17:01 | NUR ---
CALLED DR. ALCOCER-RESIDENT TO VERIFY THE MED REC IN TRANSFER PACKET; PER DR. ALCOCER, THE PATIENT NEEDS TO TAKE XARELTO 15MG PO BID FOR 21 DAYS, THE 20 MG PO FROM DAY 22ND.
[2017-02-11 17:19] VITALS: BP 122/78
[2017-02-11 17:29] VITALS: BP 122/78
--- NOTE | 2017-02-11 17:45 | NUR ---
THE PATIENT WAS CHANGED DUE TO INCONTINENT URINE. BOTH H/L WAS FLUSHED AND CLAMPED. [place] [facility] PICKED UP THE PATIENT VIA [facility] TO [place] [facility] [place]ONG[place] INCLUDING UPPER DENTURE [place] [facility] [place].
== END 2017-02-11 17:45 | DRG 622 ==
LOC: ED 20:42 → DU 23:43 → MU 02-09 15:18 → DU 02-09 22:34 → MU 02-09 22:35
PROVIDERS: Emergency Medicine; Family Medicine; Student in an Organized Health Care Education/Training Program; ADMIT Family Medicine
PROC: 0JBP0ZZ Excision of Left Lower Leg Subcutaneous Tissue and Fascia, Open Approach (ICD-10-PCS; principal; 2017-02-07 14:30)
DX: E11.621 Type 2 diabetes mellitus with foot ulcer (principal); E43 Unspecified severe protein-calorie malnutrition; L03.116 Cellulitis of left lower limb; E87.2 Acidosis; E87.1 Hypo-osmolality and hyponatremia; Z68.41 Body mass index [BMI] 40.0-44.9, adult; B37.49 Other urogenital candidiasis; D68.69 Other thrombophilia; E11.65 Type 2 diabetes mellitus with hyperglycemia; E11.51 Type 2 diabetes mellitus with diabetic peripheral angiopathy without gangrene; E66.01 Morbid (severe) obesity due to excess calories; E83.42 Hypomagnesemia; N17.0 Acute kidney failure with tubular necrosis; E78.5 Hyperlipidemia, unspecified; E03.9 Hypothyroidism, unspecified; E87.6 Hypokalemia; I82.412 Acute embolism and thrombosis of left femoral vein; I82.432 Acute embolism and thrombosis of left popliteal vein; I10 Essential (primary) hypertension; R31.9 Hematuria, unspecified; R80.8 Other proteinuria; M17.0 Bilateral primary osteoarthritis of knee; Z79.4 Long term (current) use of insulin; F03.90 Unspecified dementia, unspecified severity, without behavioral disturbance, psychotic disturbance, mood disturbance, and anxiety
CPT/HCPCS: 82962; 83880; 84439; 97110-GP; 97530-GP; J0713; J1170; J1450; J1644; J1815; J1956; J2001; J2405; J2543; J3475; J3490; J7030; Q0092